=== PATIENT | male | born 1930 | race Caucasian/White ===

== ENCOUNTER → 2016-11-15 | Outpatient (CLI) | payer MEDICARE, MEDICAID ==
[~2016-11-15] MED LIST: ASPI-264 PO; ATO40T PO; DILT120C36 PO; LISI10TA6 PO; MAXZ PO; NAPR-607 PO; TRAM50TA2 PO; meto PO; prilosec PO
== END | disposition home or self-care (01) ==
LOC: Rad HDHVI 10:06
PROVIDERS: ATTEND Internal Medicine Cardiovascular Disease
DX: I10 Essential (primary) hypertension (principal); E78.00 Pure hypercholesterolemia, unspecified; R53.1 Weakness
CPT/HCPCS: 93926

== ENCOUNTER 2018-03-01 22:35 | Inpatient (IN) | payer MEDICARE, MEDICAID ==
[~2018-03-01] VITALS: Ht 167.6 cm; Wt 76.7 kg
[~2018-03-01 22:35] MED LIST changes: -NAPR-607 PO; +NAPR500T31 PO
[2018-03-01] MEDS ORDERED: ACETAMINOPHEN 325 MG TAB PO ONE (22:45)
[2018-03-02 00:43] LABS: Hematocrit 38.1 % (41.0-53.0); Mean Corpuscular Hemoglobin 26.3 pg (28.0-32.0); Platelet Count (auto) 215 10^3/uL (140-450)
[2018-03-02 00:45] LABS: Hemoglobin 12.4 g/dL (13.5-17.5); Mean Corpuscular Hgb Conc. 32.4 g/dL (32.0-36.0); Mean Corpuscular Volume 81.1 fL (80.0-100.0); White Blood Cell 20.7 10^3/uL (4.4-10.8)
[2018-03-02 00:57] LABS: Urine Bacteria NONE SEEN /hpf (None Seen); Urine Blood 3+ /uL (Negative); Urine Hyaline Cast FEW /lpf (0 - 2); Urine Mucus FEW (None Seen); Urine Specific Gravity 1.017 (1.001-1.035); Urine WBC 238 /hpf (0 - 3)
[2018-03-02 00:58] LABS: INR 1.2 (0.9-1.15); Prothrombin Time 13.1 sec (9.37-12.3)
[2018-03-02 00:59] LABS: BUN/Creatinine Ratio 14.5; Calcium 8.4 mg/dL (8.5-10.1); Potassium 3.9 mmol/L (3.5-5.1)
[2018-03-02 01:03] LABS: Band Neutrophils % (manual) 0; Basophils % (manual) 0 (0.0-2.0); Blast Cells 0; Eosinophils % (manual) 0 (0-7); Metamyelocytes % 0; Myelocytes % 0; Promyelocytes % 0; Reactive Lymphocytes 0
[2018-03-02 01:06] LABS: Total Protein 7.3 g/dL (6.4-8.2)
[2018-03-02 01:37] LABS: Lymphocytes % (manual) 5 (10.0-50.0); Monocytes % (manual) 2 (0-12)
[2018-03-02] MEDS ORDERED: MAGN400C2 PO (01:41)
[2018-03-02] MEDS ORDERED: CLOP75TA41 PO (01:41)
[2018-03-02] MEDS ORDERED: CHOL20007 OR (01:41)
[2018-03-02] MEDS ORDERED: TORS20TA20 PO (01:41)
[2018-03-02] MEDS ORDERED: cefTRIAXone 1GM/10ml IVPUSH 10 ML IV ONE (01:45)
[2018-03-02] MEDS ORDERED: SODIUM CHLORIDE 0.9% 1,000 ML IV ONE (01:45)
[2018-03-02] MEDS ORDERED: ONDANSETRON HCL 4 MG/2 ML VIAL IV PRN (06:00)
[2018-03-02] MEDS ORDERED: NITROGLYCERIN 0.4 MG SL TAB SL PRN (06:00)
[2018-03-02] MEDS ORDERED: ACETAMINOPHEN 325 MG TAB PO PRN (06:00)
[2018-03-02] MEDS ORDERED: MORPHINE SULFATE 8mg/ml INJ SDV IV PRN (06:00)
[2018-03-02] MEDS ORDERED: FUROSEMIDE 20 MG TAB PO SCH (10:00)
[2018-03-02] MEDS ORDERED: LISINOPRIL 10 MG TAB PO SCH (10:00)
[2018-03-02] MEDS ORDERED: ASPirin 325 MG TAB PO SCH (10:00)
[2018-03-02] MEDS: DILTIAZEM HCL 120MG ER CAP PO SCH (10:43)
[2018-03-02] MEDS: HYDROcodone-ACET 5/325MG TAB PO PRN (10:44)
[2018-03-02] MEDS: CLOPIDOGREL BISULFATE 75 MG TAB PO SCH (10:44)
[2018-03-02] MEDS: PANTOPRAZOLE 40 MG TAB PO SCH (10:45)
[2018-03-02] MEDS: ENOXAPARIN SOD 30 MG/0.3 ML SYRINGE SC SCH (10:51)
[2018-03-02] MEDS: SODIUM CHLORIDE 0.9% 1,000 ML IV SCH ×2 (12:32→20:50)
[2018-03-02 20:15] VITALS: BP 120/65
[2018-03-02] MEDS: cefTRIAXone 1GM/10ml IVPUSH 10 ML IV SCH (21:33)
[2018-03-02] MEDS: ATORVASTATIN 20 MG TAB PO SCH (21:34)
[2018-03-02 23:51] VITALS: BP 120/65
[2018-03-03] VITALS (7 sets, daily range): BP systolic 116–144; BP diastolic 62–76
[2018-03-03 05:50] LABS: Basophils # (auto) 0.1 uL; Eosinophils # (auto) 0.3 uL; Hemoglobin 11.2 g/dL (13.5-17.5); Monocytes # (auto) 1.3 uL; Nucleated Red Blood Cells % 0.1 %
[2018-03-03 05:52] LABS: Basophils % (auto) 0.5 % (0.0-2.0); Eosinophils % (auto) 2.1 % (0.0-7.0); Hematocrit 34.6 % (41.0-53.0); Lymphocytes % (auto) 6.7 % (10.0-50.0); Mean Corpuscular Hemoglobin 26.2 pg (28.0-32.0); Mean Corpuscular Hgb Conc. 32.3 g/dL (32.0-36.0); Mean Corpuscular Volume 81.1 fL (80.0-100.0); Monocytes % (auto) 9.2 % (0.0-12.0); Neutrophils # (auto) 11.9 uL; Neutrophils % (auto) 81.5 % (37.0-80.0); Platelet Count (auto) 165 10^3/uL (140-450); Red Blood Cells 4.27 10^6/uL (4.5-5.90); Red Cell Distribution Width 15.2 % (11.8-14.3); White Blood Cell 14.6 10^3/uL (4.4-10.8)
[2018-03-03 06:14] LABS: Albumin 2.8 g/dL (3.4-5.0); BUN/Creatinine Ratio 19.7; Bilirubin, Total 0.4 mg/dL (0.2-1.0); Calcium 7.9 mg/dL (8.5-10.1); Magnesium 2.6 mg/dL (1.6-2.6); Potassium 3.9 mmol/L (3.5-5.1)
[2018-03-03] MEDS: PANTOPRAZOLE 40 MG TAB PO SCH (09:18)
[2018-03-03] MEDS: DILTIAZEM HCL 120MG ER CAP PO SCH (09:18)
[2018-03-03] MEDS: CLOPIDOGREL BISULFATE 75 MG TAB PO SCH (09:18)
[2018-03-03] MEDS: ENOXAPARIN SOD 30 MG/0.3 ML SYRINGE SC SCH (09:19)
[2018-03-03] MEDS: cefTRIAXone 1GM/10ml IVPUSH 10 ML IV SCH (09:19)
[2018-03-03] MEDS: SODIUM CHLORIDE 0.9% 1,000 ML IV SCH (13:34)
[2018-03-03] MEDS: ATORVASTATIN 20 MG TAB PO SCH (21:38)
[2018-03-03] MEDS: HYDROcodone-ACET 5/325MG TAB PO PRN (22:57)
[2018-03-04] MEDS: SENNA 8.6 MG TAB PO PRN (01:14)
[2018-03-04] MEDS: TEMAZEPAM 15 MG CAP PO PRN ×2 (01:15→23:17)
[2018-03-04] MEDS: SODIUM CHLORIDE 0.9% 1,000 ML IV SCH ×2 (03:58→18:03)
[2018-03-04 05:07] VITALS: BP 130/63
[2018-03-04 07:18] LABS: Basophils # (auto) 0.1 uL; Eosinophils # (auto) 0.5 uL; Hematocrit 35.8 % (41.0-53.0); Hemoglobin 11.6 g/dL (13.5-17.5); Mean Corpuscular Hemoglobin 26.5 pg (28.0-32.0); Mean Corpuscular Hgb Conc. 32.4 g/dL (32.0-36.0); Mean Corpuscular Volume 81.8 fL (80.0-100.0); Monocytes # (auto) 1.1 uL; Neutrophils # (auto) 5.5 uL; Neutrophils % (auto) 67.7 % (37.0-80.0); White Blood Cell 8.1 10^3/uL (4.4-10.8)
[2018-03-04 07:24] LABS: Basophils % (auto) 0.7 % (0.0-2.0); Eosinophils % (auto) 6.6 % (0.0-7.0); Lymphocytes % (auto) 11.7 % (10.0-50.0); Monocytes % (auto) 13.3 % (0.0-12.0); Nucleated Red Blood Cells % 0.2 %; Platelet Count (auto) 178 10^3/uL (140-450); Red Blood Cells 4.38 10^6/uL (4.5-5.90); Red Cell Distribution Width 15.2 % (11.8-14.3)
[2018-03-04 07:35] LABS: BUN/Creatinine Ratio 19.1; Calcium 8.4 mg/dL (8.5-10.1); Potassium 3.7 mmol/L (3.5-5.1)
[2018-03-04 08:00] VITALS: BP 136/83
[2018-03-04 09:00] VITALS: BP 136/83
[2018-03-04] MEDS: CLOPIDOGREL BISULFATE 75 MG TAB PO SCH (09:55)
[2018-03-04] MEDS: DILTIAZEM HCL 120MG ER CAP PO SCH (09:56)
[2018-03-04] MEDS: PANTOPRAZOLE 40 MG TAB PO SCH (09:56)
[2018-03-04] MEDS: ENOXAPARIN SOD 30 MG/0.3 ML SYRINGE SC SCH (09:56)
[2018-03-04 13:00] VITALS: BP 138/52
[2018-03-04 17:00] VITALS: BP 140/96
[2018-03-04] MEDS: TAMSULOSIN HYDROCHLORIDE 0.4 MG CAP PO SCH (18:02)
[2018-03-04] MEDS: ATORVASTATIN 20 MG TAB PO SCH (21:32)
[2018-03-04] MEDS: cefTRIAXone 1GM/10ml IVPUSH 10 ML IV SCH (21:32)
[2018-03-04 22:00] VITALS: BP 139/80
[2018-03-05] MEDS: HYDROcodone-ACET 5/325MG TAB PO PRN (00:15)
[2018-03-05] MEDS: SENNA 8.6 MG TAB PO PRN ×3 (00:15→22:47)
[2018-03-05 05:30] VITALS: BP 148/67
[2018-03-05 06:05] LABS: Basophils # (auto) 0.1 uL; Eosinophils # (auto) 0.7 uL; Hemoglobin 11.9 g/dL (13.5-17.5); Monocytes # (auto) 1.2 uL; Neutrophils # (auto) 4.7 uL; Platelet Count (auto) 190 10^3/uL (140-450); Red Cell Distribution Width 14.9 % (11.8-14.3)
[2018-03-05 06:09] LABS: Basophils % (auto) 0.9 % (0.0-2.0); Eosinophils % (auto) 8.5 % (0.0-7.0); Hematocrit 36.2 % (41.0-53.0); Lymphocytes # (auto) 1.3 uL; Lymphocytes % (auto) 16.6 % (10.0-50.0); Mean Corpuscular Hemoglobin 26.7 pg (28.0-32.0); Mean Corpuscular Hgb Conc. 32.8 g/dL (32.0-36.0); Mean Corpuscular Volume 81.4 fL (80.0-100.0); Monocytes % (auto) 15.3 % (0.0-12.0); Neutrophils % (auto) 58.7 % (37.0-80.0); Nucleated Red Blood Cells % 0.1 %; Red Blood Cells 4.45 10^6/uL (4.5-5.90); White Blood Cell 7.9 10^3/uL (4.4-10.8)
[2018-03-05 06:21] LABS: Potassium 4.1 mmol/L (3.5-5.1)
[2018-03-05 06:27] LABS: BUN/Creatinine Ratio 19.5; Calcium 8.7 mg/dL (8.5-10.1)
[2018-03-05 09:00] VITALS: BP 149/76
[2018-03-05] MEDS: DILTIAZEM HCL 120MG ER CAP PO SCH (09:56)
[2018-03-05] MEDS: CLOPIDOGREL BISULFATE 75 MG TAB PO SCH (09:56)
[2018-03-05] MEDS: PANTOPRAZOLE 40 MG TAB PO SCH (09:57)
[2018-03-05] MEDS: ENOXAPARIN SOD 30 MG/0.3 ML SYRINGE SC SCH (09:57)
[2018-03-05 13:00] VITALS: BP 131/71
[2018-03-05 16:57] VITALS: BP 148/58
[2018-03-05] MEDS: TAMSULOSIN HYDROCHLORIDE 0.4 MG CAP PO SCH (18:20)
[2018-03-05 22:00] VITALS: BP 141/75
[2018-03-05] MEDS: cefTRIAXone 1GM/10ml IVPUSH 10 ML IV SCH (22:47)
[2018-03-05] MEDS: ATORVASTATIN 20 MG TAB PO SCH (22:47)
[2018-03-06] MEDS: TEMAZEPAM 15 MG CAP PO PRN (00:06)
[2018-03-06] MEDS: HYDROcodone-ACET 5/325MG TAB PO PRN (01:46)
[2018-03-06 05:00] VITALS: BP 149/79
[2018-03-06 06:12] LABS: Potassium 3.6 mmol/L (3.5-5.1)
[2018-03-06 06:21] LABS: BUN/Creatinine Ratio 19.1; Calcium 8.3 mg/dL (8.5-10.1)
[2018-03-06 08:00] VITALS: BP 153/66
[2018-03-06 08:49] VITALS: BP 153/66
[2018-03-06] MEDS: CLOPIDOGREL BISULFATE 75 MG TAB PO SCH (09:42)
[2018-03-06] MEDS: DILTIAZEM HCL 120MG ER CAP PO SCH (09:42)
[2018-03-06] MEDS: PANTOPRAZOLE 40 MG TAB PO SCH (09:43)
[2018-03-06] MEDS: ENOXAPARIN SOD 30 MG/0.3 ML SYRINGE SC SCH (09:43)
[2018-03-06] MEDS ORDERED: LORazepam 2MG/ML-1ML VIAL IV ONE (10:45)
[2018-03-06] MEDS ORDERED: LEVO250T45 PO (11:29)
[2018-03-06] MEDS ORDERED: SACC250C PO (11:29)
[2018-03-06] MEDS ORDERED: TAM04C PO (11:29)
[2018-03-06 12:46] VITALS: BP 146/75
[2018-03-06 13:48] VITALS: BP 146/75
== END 2018-03-06 15:15 | disposition home health service (06) | DRG 720 ==
LOC: EDBD 22:35 → ER 22:37 → TELE 22:38 → TELE-WESTW 03-02 19:29
PROVIDERS: ADMIT Nurse Practitioner; ATTEND Internal Medicine
DX: A41.9 Sepsis, unspecified organism (principal); N17.0 Acute kidney failure with tubular necrosis; I10 Essential (primary) hypertension; E78.5 Hyperlipidemia, unspecified; I25.10 Atherosclerotic heart disease of native coronary artery without angina pectoris; N30.90 Cystitis, unspecified without hematuria; E86.0 Dehydration; I15.0 Renovascular hypertension; I70.1 Atherosclerosis of renal artery; I73.9 Peripheral vascular disease, unspecified; J98.11 Atelectasis; N18.3 Chronic kidney disease, stage 3 (moderate); N20.0 Calculus of kidney; N27.1 Small kidney, bilateral; N28.1 Cyst of kidney, acquired; N40.0 Benign prostatic hyperplasia without lower urinary tract symptoms; Z77.090 Contact with and (suspected) exposure to asbestos; Z95.5 Presence of coronary angioplasty implant and graft; Z82.3 Family history of stroke; Z82.49 Family history of ischemic heart disease and other diseases of the circulatory system; Z87.11 Personal history of peptic ulcer disease; Z79.899 Other long term (current) drug therapy; Z79.82 Long term (current) use of aspirin
CPT/HCPCS: 36415; 74176; 76775; 80048; 80053; 80061; 81001; 83605; 83690; 83735; 85007; 85025; 85027; 85379; 85610; 85730; 87040; 87086; 93970; 96361; 96374

== ENCOUNTER → 2018-03-26 | Outpatient (CLI) | payer MEDICARE, MEDICAID ==
[~2018-03-26] MED LIST changes: +CHOL20007 OR; +CLOP75TA41 PO; +LEVO250T45 PO; +MAGN400C2 PO; -MAXZ PO; -NAPR500T31 PO; +SACC250C PO; +TAM04C PO; -meto PO
[2018-03-26 16:02] LABS: Basophils # (auto) 0.1 uL; Basophils % (auto) 0.8 % (0.0-2.0); Eosinophils # (auto) 0.7 uL; Eosinophils % (auto) 11.3 % (0.0-7.0); Hematocrit 35.4 % (41.0-53.0); Hemoglobin 11.5 g/dL (13.5-17.5); Lymphocytes # (auto) 1.3 uL; Lymphocytes % (auto) 20.8 % (10.0-50.0); Mean Corpuscular Hemoglobin 27.5 pg (28.0-32.0); Mean Corpuscular Hgb Conc. 32.6 g/dL (32.0-36.0); Mean Corpuscular Volume 84.2 fL (80.0-100.0); Monocytes # (auto) 0.5 uL; Monocytes % (auto) 7.8 % (0.0-12.0); Neutrophils # (auto) 3.8 uL; Neutrophils % (auto) 59.3 % (37.0-80.0); Nucleated Red Blood Cells % 0.3 %; Platelet Count (auto) 173 10^3/uL (140-450); Red Cell Distribution Width 16.3 % (11.8-14.3); White Blood Cell 6.3 10^3/uL (4.4-10.8)
[2018-03-26 16:13] LABS: Albumin 2.8 g/dL (3.4-5.0); BUN/Creatinine Ratio 18.8; Bilirubin, Total 0.3 mg/dL (0.2-1.0); Calcium 8.3 mg/dL (8.5-10.1); Total Protein 6.7 g/dL (6.4-8.2)
== END | disposition home or self-care (01) ==
LOC: LAB 13:23
PROVIDERS: ATTEND Internal Medicine Cardiovascular Disease
DX: D64.9 Anemia, unspecified (principal); I10 Essential (primary) hypertension; E78.5 Hyperlipidemia, unspecified; E03.9 Hypothyroidism, unspecified; E55.9 Vitamin D deficiency, unspecified; E11.9 Type 2 diabetes mellitus without complications; N39.0 Urinary tract infection, site not specified; D51.9 Vitamin B12 deficiency anemia, unspecified
CPT/HCPCS: 36415; 80053; 85025; 87086

== ENCOUNTER → 2018-03-27 | Outpatient (CLI) | payer MEDICARE, MEDICAID ==
[2018-03-27 12:05] LABS: Urine Blood 1+ /uL (Negative); Urine Specific Gravity 1.014 (1.001-1.035)
== END | disposition home or self-care (01) ==
LOC: LAB 09:51
PROVIDERS: ATTEND Internal Medicine Cardiovascular Disease
DX: N39.0 Urinary tract infection, site not specified (principal); I12.9 Hypertensive chronic kidney disease with stage 1 through stage 4 chronic kidney disease, or unspecified chronic kidney disease; N18.3 Chronic kidney disease, stage 3 (moderate); E78.5 Hyperlipidemia, unspecified; Z79.82 Long term (current) use of aspirin; Z79.899 Other long term (current) drug therapy
CPT/HCPCS: 81003; 87086; 87088; 87186

== ENCOUNTER → 2018-04-11 | Outpatient (CLI) | payer MEDICARE, MEDICAID | END | disposition home or self-care (01) | LOC: Rad HDHVI 12:51 | PROVIDERS: ATTEND Internal Medicine Cardiovascular Disease | DX: I34.0 Nonrheumatic mitral (valve) insufficiency (principal); I73.9 Peripheral vascular disease, unspecified; E03.9 Hypothyroidism, unspecified; I12.9 Hypertensive chronic kidney disease with stage 1 through stage 4 chronic kidney disease, or unspecified chronic kidney disease; E11.22 Type 2 diabetes mellitus with diabetic chronic kidney disease; N18.3 Chronic kidney disease, stage 3 (moderate); Z79.82 Long term (current) use of aspirin; Z79.899 Other long term (current) drug therapy | CPT/HCPCS: 93306 ==

== ENCOUNTER → 2019-03-25 | Outpatient (CLI) | payer MEDICARE, MEDICAID ==
[~2019-03-25] MED LIST changes: +LEVO250T19 PO; -LEVO250T45 PO
[2019-03-25 12:53] LABS: Basophils # (auto) 0.1 uL; Basophils % (auto) 1.2 % (0.0-2.0); Eosinophils # (auto) 1.5 uL; Eosinophils % (auto) 12.6 % (0.0-7.0); Hematocrit 40.5 % (41.0-53.0); Hemoglobin 13.1 g/dL (13.5-17.5); Lymphocytes # (auto) 2.7 uL; Lymphocytes % (auto) 23.3 % (10.0-50.0); Mean Corpuscular Hgb Conc. 32.2 g/dL (32.0-36.0); Mean Corpuscular Volume 83.7 fL (80.0-100.0); Monocytes # (auto) 0.8 uL; Monocytes % (auto) 7.2 % (0.0-12.0); Neutrophils # (auto) 6.5 uL; Neutrophils % (auto) 55.7 % (37.0-80.0); Nucleated Red Blood Cells % 0.1 %; Platelet Count (auto) 185 10^3/uL (140-450); Red Blood Cells 4.84 10^6/uL (4.5-5.90); Red Cell Distribution Width 14.6 % (11.8-14.3); White Blood Cell 11.7 10^3/uL (4.4-10.8)
[2019-03-25 13:41] LABS: Free T4 (Free Thyroxine) 0.86 ng/dL (0.89-1.76); Prostate Specific Antigen 3.38 ng/mL (0.0-4.0)
[2019-03-25 14:22] LABS: Potassium 3.9 mmol/L (3.5-5.1)
[2019-03-25 14:40] LABS: Albumin 3.2 g/dL (3.4-5.0); BUN/Creatinine Ratio 21.6; Bilirubin, Total 0.6 mg/dL (0.2-1.0); Calcium 8.8 mg/dL (8.5-10.1); Total Protein 7.3 g/dL (6.4-8.2)
== END | disposition home or self-care (01) ==
LOC: Rad HDHVI 10:45
PROVIDERS: ATTEND Internal Medicine Cardiovascular Disease
DX: I73.9 Peripheral vascular disease, unspecified (principal); E03.9 Hypothyroidism, unspecified; E55.9 Vitamin D deficiency, unspecified; C61 Malignant neoplasm of prostate; E29.1 Testicular hypofunction; E11.9 Type 2 diabetes mellitus without complications; D51.9 Vitamin B12 deficiency anemia, unspecified; N39.0 Urinary tract infection, site not specified; Z79.899 Other long term (current) drug therapy
CPT/HCPCS: 36415; 80053; 80061; 82306; 82607; 83036; 84153; 84403; 84439; 84443; 85025; 93926